=== PATIENT | female | born 1995 | race Caucasian/White ===

== ENCOUNTER 2022-09-25 08:05 | Emergency (ER) | payer OTHER ==
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
[2022-09-25 10:01] VITALS: BP 108/78; TEMP 97.9; O2SAT 99
== END 2022-09-25 09:55 | disposition home or self-care (01) ==
LOC: ER 08:05
DX: Z04.1 Encounter for examination and observation following transport accident (principal); V49.40XA Driver injured in collision with unspecified motor vehicles in traffic accident, initial encounter
CPT/HCPCS: 76815; 99284